=== PATIENT | female | born 1975 | race Caucasian/White ===

== ENCOUNTER 2023-03-24 16:48 | Emergency (ER) | payer OTHER ==
[2023-03-24] MEDS ORDERED: Ketorolac Tromethamine 30 MG/ML VIAL ONE (17:12)
[2023-03-24 17:18] LABS: #Basophils 0.1 thou/uL (0.0-0.2); #Eosinphils 0.4 thou/uL (0.0-0.7); #Monocytes 0.8 thou/uL (0.11-0.59); #Neutrophils 7.5 thou/uL (1.40-6.50); %Basophils 0.8 % (0.0-1.0); %Eosinophils 3.4 % (0.0-10.0); %Lymphocytes 22.9 % (21.0-51.0); %Neutrophils 65.3 % (42.0-75.0); Hematocrit 30.9 % (36.0-47.0); Mean Corpuscular HGB CONC 29.1 g/dL (32.0-36.0); Mean Corpuscular Hemoglobin 19.6 pg (27.0-31.0); Mean Corpuscular Volume 67.2 fl (78.0-98.0); Mean Platelet Volume 10.3 fL (7.4-10.4); Platelet Count 407 10x3/uL (130-400); RBC Distribution Width 18.3 % (11.5-14.5); White Blood Cell (WBC) Count 11.5 10x3/uL (4.8-10.8)
[2023-03-24 17:43] LABS: ALT (SGPT) 11 U/L (8-55); AST (SGOT) 17 U/L (5-34); Albumin 3.8 g/dL (3.5-5.0); Alkaline Phosphatase 112 U/L (40-110); Anion Gap 11 mmol/L (10-20); BUN (Urea Nitrogen) 10 mg/dL (7.0-18.7); Bilirubin, Total 0.3 mg/dL (0.2-1.2); Calc. Creatinine Clearance 0 mL/min (70-130); Calcium 8.9 mg/dL (7.8-10.44); Carbon Dioxide 28 mmol/L (22-29); Chloride 103 mmol/L (98-107); Estimated GFR 84; Globulin 3.6 g/dL (2.4-3.5); Glucose 112 mg/dL (70-105); Potassium 3.2 mmol/L (3.5-5.1); Protein, Total 7.4 g/dL (6.0-8.3); Sodium 139 mmol/L (136-145)
[2023-03-24 17:51] LABS: CellaVision Operator ID LAB.CH5; Hypochromia SLIGHT = 6-15 cells HPF (0-5); Platelet Adequacy Comment Platelets Increased; Polychromasia SLIGHT = 2-3 cells HPF (0-2)
[2023-03-24 18:17] LABS: SARS-CoV-2 NAA Rapid Test Not Detected (NotDetected)
[2023-03-24] MEDS ORDERED: Potassium Chloride 20 MEQ TAB ONE (18:25)
== END 2023-03-24 18:51 | disposition home or self-care (01) ==
LOC: ERS 16:48
DX: J06.9 Acute upper respiratory infection, unspecified (principal); E87.6 Hypokalemia; Z87.891 Personal history of nicotine dependence
CPT/HCPCS: 80053; 85025; 93005; 96374; J1885

== ENCOUNTER 2023-04-07 15:17 | Inpatient (IN) | payer OTHER ==
[~2023-04-07 15:17] MED LIST: Iopamidol-370 76% 500 ML MDV (1 ML CHARGE) ONE
[2023-04-07 15:34] LABS: #Basophils 0.1 thou/uL (0.0-0.2); #Eosinphils 0.2 thou/uL (0.0-0.7); #Monocytes 0.9 thou/uL (0.11-0.59); #Neutrophils 10.4 thou/uL (1.40-6.50); %Basophils 0.9 % (0.0-1.0); %Eosinophils 1.2 % (0.0-10.0); %Lymphocytes 20.3 % (21.0-51.0); %Monocytes 6.1 % (0.0-10.0); %Neutrophils 70.9 % (42.0-75.0); Hematocrit 33.3 % (36.0-47.0); Hemoglobin 9.7 g/dL (12.0-16.0); Mean Corpuscular HGB CONC 29.1 g/dL (32.0-36.0); Mean Corpuscular Hemoglobin 19.2 pg (27.0-31.0); Mean Corpuscular Volume 66.1 fl (78.0-98.0); Mean Platelet Volume 9.5 fL (7.4-10.4); Platelet Count 623 10x3/uL (130-400); RBC Distribution Width 18.5 % (11.5-14.5); Red Blood Cell (RBC) Count 5.04 mill/uL (4.20-5.40); White Blood Cell (WBC) Count 14.7 10x3/uL (4.8-10.8)
[2023-04-07 15:51] LABS: Acetaminophen Less than 10 mcg/mL (10.0-30.0); Alcohol Less than 10.0 mg/dL (Less than 10); Salicylate Less than 8.0 mg/dL (15.0-30.0)
[2023-04-07 15:53] LABS: ALT (SGPT) 13 U/L (8-55); AST (SGOT) 17 U/L (5-34); Alkaline Phosphatase 123 U/L (40-110); Anion Gap 13 mmol/L (10-20); BUN (Urea Nitrogen) 9 mg/dL (7.0-18.7); Bilirubin, Total 0.5 mg/dL (0.2-1.2); Calc. Creatinine Clearance 0 mL/min (70-130); Calcium 8.6 mg/dL (7.8-10.44); Carbon Dioxide 23 mmol/L (22-29); Chloride 103 mmol/L (98-107); Estimated GFR 98; Globulin 3.9 g/dL (2.4-3.5); Glucose 111 mg/dL (70-105); Potassium 3.2 mmol/L (3.5-5.1); Protein, Total 7.9 g/dL (6.0-8.3); Sodium 136 mmol/L (136-145)
[2023-04-07 15:55] LABS: Troponin I Less than 0.010 ng/mL (< 0.028)
[2023-04-07 16:25] LABS: Anisocytosis SLIGHT = 6-15 cells (100X) (0-5/hpf); Hypochromia SLIGHT = 6-15 cells (100X) (0-5/hpf); Microcytosis SLIGHT = 6-15 cells (100X) (0-5/hpf); Platelet Adequacy Comment Appears Increased; Polychromasia SLIGHT = 2-3 cells (100X) (0-2/hpf); Stomatocytes SLIGHT = 2-5 cells (100X) (0-1/hpf)
[2023-04-07] MEDS ORDERED: Aspirin Chewable 81 MG TAB ONE (16:52)
[2023-04-07 17:11] LABS: SARS-CoV-2 NAA Rapid Test Not Detected (NotDetected)
[2023-04-07 17:53] LABS: Bacteria/HPF None Seen HPF (None Seen); Bilirubin Negative (Negative); Blood, Urine Negative (Negative); CAUTI Indications for Culture Alt mental st,lethar; Clarity Clear (Clear); Glucose, Urine (Dipstick) Normal (Negative); Ketone, Urine Negative (Negative); Leukocyte Negative Leu/uL (Negative); Nitrite Negative (Negative); Protein, Urine (Dipstick) 10 mg/dL (Neg-Trace); RBC/HPF 0-3 HPF (0-3); Squamous Epithelial 0-3 HPF (0-3); Urobilinogen Normal mg/dL (Less than 2); WBC/HPF 0-3 HPF (0-3); pH, Urine 6.5 (5.0-9.0)
[2023-04-07 17:57] LABS: Amphetamine Not Detected (NotDetected); Barbiturates Screen Not Detected (NotDetected); Benzodiazepine Screen Not Detected (NotDetected); Cocaine Metabolite Screen Not Detected (NotDetected); Methadone Not Detected (NotDetected); Methamphetamine Not Detected (NotDetected); Opiate Screen Not Detected (NotDetected); Oxycodone Screen Not Detected (NotDetected); Phencyclidine (PCP) Not Detected (NotDetected); THC/Cannabinoid Screen Not Detected (NotDetected); Tricyclic Screen Not Detected (NotDetected)
[2023-04-07 17:59] LABS: Specific Gravity, Urine Greater than 1.060 (1.002-1.036)
[2023-04-07 18:00] LABS: Urine Culture Reflex No No
[2023-04-07] MEDS ORDERED: Ondansetron PF 4 MG/2 ML Vial IVP PRN (18:19)
[2023-04-07] MEDS ORDERED: Labetalol HCl 100 MG/20 ML VIAL SLOW IVP PRN (18:19)
[2023-04-07] MEDS ORDERED: Ondansetron ODT 4 MG TAB PO PRN (18:19)
[2023-04-07 19:30] LABS: Magnesium 1.9 mg/dL (1.6-2.6)
[2023-04-07] MEDS ORDERED: Acetaminophen 325 MG TAB ONE (20:11)
[2023-04-07] MEDS: Acetaminophen 325 MG TAB PO PRN (20:13)
[2023-04-07] MEDS ORDERED: Potassium Chloride 20 MEQ TAB PO SCH (20:45)
[2023-04-07] MEDS ORDERED: Potassium Chloride 20 MEQ TAB ONE (21:30)
[2023-04-07] MEDS ORDERED: Atorvastatin Calcium 40 MG TAB ONE (21:30)
[2023-04-07] MEDS: Atorvastatin Calcium 40 MG TAB PO SCH (21:44)
[2023-04-07] MEDS ORDERED: traZODone HCl 50 MG TAB ONE (23:33)
[2023-04-07] MEDS: traZODone HCl 50 MG TAB PO PRN (23:37)
[2023-04-08 03:38] LABS: #Basophils 0.1 thou/uL (0.0-0.2); #Eosinphils 0.2 thou/uL (0.0-0.7); #Monocytes 0.8 thou/uL (0.11-0.59); #Neutrophils 6.1 thou/uL (1.40-6.50); %Basophils 0.9 % (0.0-1.0); %Eosinophils 1.8 % (0.0-10.0); %Lymphocytes 28.5 % (21.0-51.0); %Monocytes 8.2 % (0.0-10.0); %Neutrophils 59.7 % (42.0-75.0); Hemoglobin 8.4 g/dL (12.0-16.0); Mean Corpuscular Hemoglobin 19.6 pg (27.0-31.0); Mean Corpuscular Volume 67.6 fl (78.0-98.0); Mean Platelet Volume 9.5 fL (7.4-10.4); Platelet Count 511 10x3/uL (130-400); RBC Distribution Width 18.2 % (11.5-14.5); Red Blood Cell (RBC) Count 4.29 mill/uL (4.20-5.40); White Blood Cell (WBC) Count 10.2 10x3/uL (4.8-10.8)
[2023-04-08 03:53] LABS: Hemoglobin A1c 5.8 % (4.0-6.0)
[2023-04-08 04:02] LABS: Anion Gap 12 mmol/L (10-20); BUN (Urea Nitrogen) 7 mg/dL (7.0-18.7); Calc. Creatinine Clearance 215 mL/min (70-130); Calcium 8.3 mg/dL (7.8-10.44); Carbon Dioxide 23 mmol/L (22-29); Cardiac Risk 4.1 (Less than 4.5); Chloride 105 mmol/L (98-107); Cholesterol 131 mg/dl (< 200 Desired); Estimated GFR 107; Glucose 110 mg/dL (70-105); HDL Cholesterol 32 mg/dL (>60 Neg Risk); Iron 17 ug/dL (50-170); Iron Binding Capacity, Total 418 mcg/dL (265-497); LDL Cholesterol, Calculated 76 mg/dL; Potassium 2.9 mmol/L (3.5-5.1); Sodium 137 mmol/L (136-145); Triglycerides 117 mg/dL (Less than 150)
[2023-04-08 04:12] LABS: Ferritin 4.44 ng/mL (10-291); Thyroid Stimulating Hormone 3.0926 uIU/mL (0.35-4.94)
[2023-04-08] MEDS ORDERED: Potassium Chloride 20 MEQ TAB ONE ×2 (04:35→09:28)
[2023-04-08] MEDS: Potassium Chloride 20 MEQ TAB PO SCH ×2 (04:42→10:37)
[2023-04-08] MEDS ORDERED: Electrolyte Replacement Protocol 1 EACH FS SCH (07:30)
[2023-04-08] MEDS ORDERED: Electrolyte Replacement Protocol FS PRN (07:45)
[2023-04-08] MEDS ORDERED: Magnesium 2 GM/50 ML(in water) 2 GM in Premix 1 BAG IVPB SCH (08:00)
[2023-04-08 08:39] VITALS: BMI 52.3
[2023-04-08 08:51] LABS: Magnesium 1.8 mg/dL (1.6-2.6)
[2023-04-08] MEDS ORDERED: Magnesium 2 GM/50 ML BAG (IN WATER) ONE (09:27)
[2023-04-08] MEDS ORDERED: Amlodipine 5 MG TAB ONE (09:28)
[2023-04-08] MEDS ORDERED: Aspirin 81 mg Enteric Coated Tablet ONE (09:29)
[2023-04-08] MEDS: Aspirin 81 mg Enteric Coated Tablet PO SCH (10:37)
[2023-04-08] MEDS: Amlodipine 5 MG TAB PO SCH (10:38)
[2023-04-08] MEDS: Ferrous Sulfate 325 MG TAB PO SCH (11:05)
[2023-04-08] MEDS ORDERED: Acetaminophen 325 MG TAB ONE (11:55)
[2023-04-08] MEDS: Acetaminophen 325 MG TAB PO PRN ×2 (11:57→21:29)
[2023-04-08] MEDS ORDERED: FLU VACC QS2023-24(6MOS UP)/PF 60 MCG/0.5 ML SYRINGE IM ONE (12:00)
[2023-04-08 13:29] LABS: Potassium 3.4 mmol/L (3.5-5.1)
[2023-04-08] MEDS: Atorvastatin Calcium 40 MG TAB PO SCH (21:29)
[2023-04-08] MEDS: traZODone HCl 50 MG TAB PO PRN (22:58)
[2023-04-09] MEDS ORDERED: Potassium Chloride 20 MEQ TAB PO SCH ×2 (04:00→08:00)
[2023-04-09 05:33] LABS: #Basophils 0.1 thou/uL (0.0-0.2); #Eosinphils 0.3 thou/uL (0.0-0.7); #Monocytes 0.9 thou/uL (0.11-0.59); #Neutrophils 6.6 thou/uL (1.40-6.50); %Basophils 0.8 % (0.0-1.0); %Eosinophils 2.9 % (0.0-10.0); %Lymphocytes 29.3 % (21.0-51.0); %Monocytes 7.5 % (0.0-10.0); %Neutrophils 58.9 % (42.0-75.0); Hematocrit 30.6 % (36.0-47.0); Hemoglobin 8.6 g/dL (12.0-16.0); Mean Corpuscular HGB CONC 28.1 g/dL (32.0-36.0); Mean Corpuscular Volume 67.5 fl (78.0-98.0); Mean Platelet Volume 9.9 fL (7.4-10.4); Platelet Count 539 10x3/uL (130-400); RBC Distribution Width 18.4 % (11.5-14.5); Red Blood Cell (RBC) Count 4.53 mill/uL (4.20-5.40); White Blood Cell (WBC) Count 11.3 10x3/uL (4.8-10.8)
[2023-04-09 06:28] LABS: Anion Gap 9 mmol/L (10-20); BUN (Urea Nitrogen) 7 mg/dL (7.0-18.7); Calc. Creatinine Clearance 200 mL/min (70-130); Calcium 8.5 mg/dL (7.8-10.44); Carbon Dioxide 25 mmol/L (22-29); Chloride 105 mmol/L (98-107); Estimated GFR 98; Glucose 115 mg/dL (70-105); Magnesium 1.8 mg/dL (1.6-2.6); Sodium 136 mmol/L (136-145)
[2023-04-09 06:39] LABS: Hypochromia SLIGHT = 6-15 cells (100X) (0-5/hpf); Microcytosis SLIGHT = 6-15 cells (100X) (0-5/hpf); Platelet Adequacy Comment Appears Increased
[2023-04-09] MEDS ORDERED: Magnesium 2 GM/50 ML(in water) 2 GM in Premix 1 BAG IVPB SCH (08:00)
[2023-04-09] MEDS: Ferrous Sulfate 325 MG TAB PO SCH (08:07)
[2023-04-09] MEDS: Aspirin 81 mg Enteric Coated Tablet PO SCH (08:07)
[2023-04-09] MEDS: Amlodipine 5 MG TAB PO SCH (08:07)
[2023-04-09] MEDS ORDERED: Lorazepam 1 MG TAB PO SCH (08:15)
[2023-04-09] MEDS ORDERED: Iopamidol-370 76% 500 ML MDV (1 ML CHARGE) ONE (10:27)
[2023-04-09 13:36] LABS: Prothrombin Time 13.1 sec (12.0-14.7)
[2023-04-09 13:37] LABS: PTT 28.3 sec (22.9-36.1)
[2023-04-09 13:43] LABS: D-Dimer Test 0.66 *mcg/mL (0.27-0.43)
[2023-04-09 15:16] LABS: HEX PHOS LA Tube 1 44.2 SEC; Hexagonal Phospholipid Neut 0.2 SEC (0-8.0)
[2023-04-09 17:49] LABS: BHCG - Serum Negative (NEGATIVE); Pregs Control Background? CLEAR/WHITE (CLR/WHITE); Pregs Control Bar Appear? YES (CONTROL BAR)
[2023-04-09] MEDS: traZODone HCl 50 MG TAB PO PRN (20:17)
[2023-04-09] MEDS ORDERED: Atorvastatin Calcium 40 MG TAB PO SCH (21:00)
[2023-04-10 04:45] LABS: #Basophils 0.1 thou/uL (0.0-0.2); #Eosinphils 0.4 thou/uL (0.0-0.7); #Monocytes 0.8 thou/uL (0.11-0.59); %Basophils 0.9 % (0.0-1.0); %Eosinophils 2.6 % (0.0-10.0); %Lymphocytes 26.6 % (21.0-51.0); %Monocytes 5.5 % (0.0-10.0); %Neutrophils 63.7 % (42.0-75.0); Hematocrit 30.1 % (36.0-47.0); Hemoglobin 8.5 g/dL (12.0-16.0); Mean Corpuscular HGB CONC 28.2 g/dL (32.0-36.0); Mean Corpuscular Hemoglobin 19.1 pg (27.0-31.0); Mean Corpuscular Volume 67.6 fl (78.0-98.0); Mean Platelet Volume 9.7 fL (7.4-10.4); Platelet Count 538 10x3/uL (130-400); RBC Distribution Width 18.5 % (11.5-14.5); Red Blood Cell (RBC) Count 4.45 mill/uL (4.20-5.40); White Blood Cell (WBC) Count 14.1 10x3/uL (4.8-10.8)
[2023-04-10 05:22] LABS: Anion Gap 12 mmol/L (10-20); BUN (Urea Nitrogen) 9 mg/dL (7.0-18.7); Calc. Creatinine Clearance 119 mL/min (70-130); Calcium 8.2 mg/dL (7.8-10.44); Carbon Dioxide 23 mmol/L (22-29); Chloride 105 mmol/L (98-107); Estimated GFR 103; Glucose 111 mg/dL (70-105); Magnesium 1.9 mg/dL (1.6-2.6); Potassium 3.3 mmol/L (3.5-5.1); Sodium 137 mmol/L (136-145)
[2023-04-10 07:42] VITALS: BP 143/91; TEMP 98.2
[2023-04-10] MEDS ORDERED: Magnesium 2 GM/50 ML(in water) 2 GM in Premix 1 BAG IVPB SCH (08:00)
[2023-04-10] MEDS ORDERED: Potassium Chloride 20 MEQ TAB PO SCH (08:00)
[2023-04-10] MEDS: Ferrous Sulfate 325 MG TAB PO SCH (08:01)
[2023-04-10] MEDS: Aspirin 81 mg Enteric Coated Tablet PO SCH (08:02)
[2023-04-10] MEDS: Amlodipine 5 MG TAB PO SCH (08:02)
[2023-04-11 13:51] LABS: Cardiolipin IgA Ab 3.6 APL-U/mL (<14 Negative); Cardiolipin IgG Ab 2.3 GPL-U/mL (<10 Negative); EliA APS New Method **** NEW METHOD ****
== END 2023-04-10 10:25 | disposition home or self-care (01) | DRG 69 ==
LOC: ERS 15:17 → ERHOLD 17:42 → 2SW 04-08 14:57 → OBSVTOIN 04-09 09:25
PROVIDERS: ADMIT Family Medicine; ATTEND Internal Medicine
DX: G45.9 Transient cerebral ischemic attack, unspecified (principal); I16.1 Hypertensive emergency; D50.9 Iron deficiency anemia, unspecified; E87.6 Hypokalemia; D72.829 Elevated white blood cell count, unspecified; I10 Essential (primary) hypertension; Z90.49 Acquired absence of other specified parts of digestive tract; Z98.51 Tubal ligation status; Z88.2 Allergy status to sulfonamides; Z98.890 Other specified postprocedural states; Z87.891 Personal history of nicotine dependence; Z11.52 Encounter for screening for COVID-19
CPT/HCPCS: 36415; 70450; 70496; 70498; 70551; 71045; 71275; 74174; 80048; 80053; 80061; 80306; 80307; 81001; 82728; 83036; 83090; 83540; 83550; 83735; 83880; 84443; 84484; 84703; 85025; 85300; 85303; 85305; 85307; 85379; 85598; 85610; 85730; 86147; 93005; 93306; 93970; 96360; 96361; 96374; 96376; G0378; J3475; Q9967

== ENCOUNTER 2023-09-23 18:11 | Emergency (ER) | payer OTHER, SELFPAY ==
[2023-09-23 20:09] LABS: #Basophils 0.08 10x3/uL (0.0-0.2); %Basophils 0.5 % (0.0-1.0); %Eosinophils 1.6 % (0.0-10.0); %Monocytes 6.7 % (0.0-10.0); %Neutrophils 69.6 % (42.0-75.0); Hematocrit 31.3 % (36.0-47.0); Hemoglobin 9.7 g/dL (12.0-16.0); Mean Corpuscular Hemoglobin 22.2 pg (27.0-31.0); Mean Corpuscular Volume 71.8 fL (78.0-98.0); Mean Platelet Volume 10.2 fL (7.4-10.4); Platelet Count 510 10x3/uL (130-400); RBC Distribution Width 15.9 % (11.5-14.5); Red Blood Cell (RBC) Count 4.36 mill/uL (4.20-5.40)
[2023-09-23 20:17] LABS: ALT (SGPT) 12 U/L (8-55); AST (SGOT) 14 U/L (5-34); Albumin 3.5 g/dL (3.5-5.0); Alkaline Phosphatase 140 U/L (40-110); Anion Gap 16 mmol/L (10-20); BUN (Urea Nitrogen) 9 mg/dL (7.0-18.7); Bilirubin, Total 0.2 mg/dL (0.2-1.2); Calc. Creatinine Clearance 0 mL/min (70-130); Calcium 9.9 mg/dL (7.8-10.44); Carbon Dioxide 26 mmol/L (22-29); Chloride 100 mmol/L (98-107); Estimated GFR 101; Globulin 4.4 g/dL (2.4-3.5); Glucose 89 mg/dL (70-105); Magnesium 1.6 mg/dL (1.6-2.6); Potassium 2.8 mmol/L (3.5-5.1); Protein, Total 7.9 g/dL (6.0-8.3); Sodium 139 mmol/L (136-145)
[2023-09-23 20:31] LABS: Anisocytosis SLIGHT = 6-15 cells HPF (0-5); Hypochromia SLIGHT = 6-15 cells HPF (0-5); Microcytosis SLIGHT = 6-15 cells HPF (0-5); Platelet Adequacy Comment Platelets Increased; Polychromasia SLIGHT = 2-3 cells HPF (0-2)
[2023-09-23] MEDS ORDERED: Metoclopramide HCl 10 MG (2 mL) VIAL ONE (20:38)
[2023-09-23] MEDS ORDERED: Acetaminophen 500 MG TAB ONE (20:38)
[2023-09-23] MEDS ORDERED: diphenhydrAMINE 50 MG/ML VIAL ONE (20:38)
[2023-09-23] MEDS ORDERED: Potassium Chloride 20 MEQ TAB ONE (21:22)
[2023-09-23] MEDS ORDERED: Potassium Chloride 20 MEQ (100 mL) BAG ONE (21:24)
[2023-09-23] MEDS ORDERED: NS 0.9% w/ 20 MEQ KCL 0 ML ONE (21:25)
== END 2023-09-24 00:22 | disposition home or self-care (01) ==
LOC: ERS 18:11
DX: G43.909 Migraine, unspecified, not intractable, without status migrainosus (principal); E87.6 Hypokalemia; J01.00 Acute maxillary sinusitis, unspecified; R29.701 NIHSS score 1; I10 Essential (primary) hypertension; Z86.73 Personal history of transient ischemic attack (TIA), and cerebral infarction without residual deficits; Z87.891 Personal history of nicotine dependence; Z79.82 Long term (current) use of aspirin
CPT/HCPCS: 0042T; 36416; 70450; 70496; 70498; 80053; 83735; 84443; 85025; 93005; 96365; 96366; 96367; 96375; J1200; J2765; J3480; Q9967